=== PATIENT | male | born 1975 | race Caucasian/White ===

== ENCOUNTER → 2019-08-09 07:05 | Outpatient (CLI) | payer SELFPAY ==
--- NOTE | 2019-08-09 07:22 | MRI_ITS ---
STUDY: MRI LUMBAR SPINE WITHOUT CONTRAST REASON FOR EXAM: Male, 44 years old. spondylolisthesis, low back pain, numbness left thigh TECHNIQUE: Standardized fat and water weighted pulse sequences were obtained in the sagittal and axial planes. COMPARISON: None FINDINGS: T12-L1: Normal endplates. Normal disc height, hydration and morphology. Normal bilateral facet joints. Normal central canal and bilateral lateral recesses. Normal bilateral intervertebral neural foramina. Normal lumbar lordosis. There is no substantial scoliosis. Normal conus medullaris that terminates at the T12/L1. L1-2: Normal endplates. Normal disc height, hydration and morphology. Normal bilateral facet joints. Normal central canal and bilateral lateral recesses. Normal bilateral intervertebral neural foramina. L2-3: Normal endplates. Normal disc height, hydration and morphology. Normal bilateral facet joints. Normal central canal and bilateral lateral recesses. Normal bilateral intervertebral neural foramina. L3-4: Mild bilateral facet hypertrophy and ligament flavum hypertrophy. Mild disc desiccation but no disc protrusion, spinal stenosis, or neural foraminal stenosis. L4-5: Mild bilateral facet hypertrophy and ligament flavum hypertrophy. Disc desiccation but no disc protrusion, spinal stenosis, or neural foraminal stenosis. L5-S1: L5 spondylolysis with 8 mm of anterolisthesis of L5 on S1 consistent with grade 1 spondylolisthesis. Mild broad disc protrusion produces mild spinal stenosis but severe bilateral neural foraminal stenosis with effacement of the exiting L5 nerve roots bilaterally. Normal visualized sacral ala. Normal visualized paraspinous soft tissue structures. MRI/Spine Lumbar (Routine) IMPRESSION: L5 spondylolysis with grade 1 spinal listhesis of L5 on S1 producing severe bilateral neural foraminal stenosis with effacement of the L5 nerve roots bilaterally. Electronically Signed: Steve Grullon MD at 12:48 EST Tel , Service support ,
== END ==
PROVIDERS: Family Provider Orthopaedic Surgery; PCP Orthopaedic Surgery; Referring Provider Chiropractor; Visit Provider Chiropractor
DX: M43.17 Spondylolisthesis, lumbosacral region (principal)
CPT/HCPCS: 72148